=== PATIENT | female | born 1970 | race African-American/Black ===

== ENCOUNTER 2016-07-23 04:57 | Inpatient (IN) | payer OTHER ==
[2016-07-19 10:21] VITALS: BMI 40.2
[~2016-07-23 04:57] MED LIST: ceFAZolin SODIUM 1 GM VIAL IVPB ONE
[2016-07-23] MEDS ORDERED: ROPIVACAINE HCL 0.5% 30ML VIAL ONE (07:13)
[2016-07-23] MEDS ORDERED: MIDAZOLAM HCL 2 MG/2 ML SINGLE DOSE VIAL ONE ×2 (07:14)
--- NOTE | 2016-07-23 08:11 | HP ---
History & Physical Update - History History: No Change - Physical Physical: No Change - Assessment Assessment: No Change - Plan Plan: No Change
[2016-07-23] MEDS ORDERED: ceFAZolin SODIUM 1 GM VIAL IVPB ONE (08:41)
[2016-07-23] MEDS ORDERED: ONDANSETRON 4 MG/2 ML VIAL IVPUSH PRN (10:11)
[2016-07-23] MEDS ORDERED: oxyCODONE HCL 5 MG TABLET PO PRN ×2 (10:11)
[2016-07-23] MEDS ORDERED: LACTATED RINGERS SOLUTION 1,000 ML IV SCH (10:15)
--- NOTE | 2016-07-23 10:18 | OP ---
<Capri Kern - Last Filed: 07/23/16 10:13> Operative Note - Note: Operative Date: 07/23/16 Pre-Operative Diagnosis: leimyoma Operation: abdominal myomectomy Post-Operative Diagnosis: Same as Pre-op Surgeon: Margot Singh [employer]iconductor Development Technician: Capri Kern Anesthesiologist/SECOND OPERATOR: Byron López Anesthesia: General Specimens Removed: uterine fibroid Estimated Blood Loss (mls): 30 Drains & Tubes with Location: pisano Drains, Volume Out (mls): 100 Fluid Volume Replaced (mls): 1,200 Operative Report Dictated: Yes <Margot Singh - Last Filed: 07/23/16 13:37> Operative Note - Note: Operative Date: 07/23/16 Pre-Operative Diagnosis: Leiomyomeatous uterus. intramural myoma. irregular bleeding Operation: Abdominal myomectomy. Left ovarian cystectomy Findings: Left corpus luteal cyst 4 myomas removed largest 4cm x 3 cm Surgeon: Margot Singh [employer] Development Technician: Capri Kern Anesthesia: General Operative Report Dictated: Yes
--- NOTE | 2016-07-23 11:39 | SURG ---
Surgery Trapper Bird Note Trapper Bird: Capri Kern PA-C Date of Service: 07/23/16 Diagnosis: uterine leiomyoma Procedure: abdominal myometctomy I was present for the entirety of the operative procedure. For further detail, please refer to operative report. Visit type - Case Type Case Type: Scheduled Admission - Emergency Emergency Visit: No - New patient This patient is new to me today: Yes Date on this admission: 07/23/16 - Critical Care Critical Care patient: No
[2016-07-23] MEDS ORDERED: ONDANSETRON 4 MG/2 ML VIAL IVPB PRN (11:42)
[2016-07-23] MEDS ORDERED: LORATADINE 10 MG TABLET PO PRN (11:51)
[2016-07-23] MEDS ORDERED: HYDROmorphone *PCA* 10MG/50ML DISP.SYRIN PCA ONE (12:06)
[2016-07-23] MEDS ORDERED: HYDROmorphone *PCA* 10MG/50ML DISP.SYRIN PCA SCH (12:15)
[2016-07-23] MEDS: LACTATED RINGERS SOLUTION 1,000 ML IV SCH (15:00)
[2016-07-23] MEDS ORDERED: CEFAZOLIN (PRE-DOCKED) 50 ML IVPB ONE ×2 (16:43→21:22)
[2016-07-23] MEDS: CEFAZOLIN 1 GM/D5W 50 ML IVPB SCH (16:50)
[2016-07-23] MEDS: ACETAMINOPHEN 325 MG TABLET (FP) PO SCH (18:59)
[2016-07-24] MEDS: CEFAZOLIN 1 GM/D5W 50 ML IVPB SCH (00:58)
--- NOTE | 2016-07-24 07:14 | PN ---
Progress Note (short form) - Note Progress Note: 46 yo status post abdominal myomectomy, seen and evaluated. She c/o incision pain. PE : Chest : CTA, no rales ABD : Soft, dressing dry and intact + incision pain EXT : No calf tenderness ASS / Plan : Status post Myomectomy Ambulation Analgesia PRN pain D/C Carbajal catheter Regular diet Continue post op care
[2016-07-24 08:25] LABS: MCH 25.8 pg (25.7-33.7); MCHC 33.2 g/dl (32.0-36.0); MEAN CELL VOLUME 77.8 fl (80-96); MEAN PLT VOLUME 8.5 fl (7.5-11.1); PLATELET COUNT 253 K/MM3 (134-434); RDW 16.3 % (11.6-15.6); WHITE BLOOD COUNT 13.1 K/mm3 (4.0-10.0)
[2016-07-24 08:56] LABS: CALCIUM 8.1 mg/dL (8.5-10.1); COCKROFT - GAULT 186.49; CREATININE 0.6 mg/dL (0.55-1.02)
[2016-07-24] MEDS ORDERED: CYANOCOBALAMIN 1,000 MCG TABLET (FP) PO SCH (10:00)
[2016-07-24] MEDS ORDERED: oxyCODONE HCL 5 MG TABLET PO PRN ×2 (10:00)
[2016-07-24] MEDS ORDERED: DHA PO SCH (10:00)
[2016-07-24] MEDS ORDERED: DSS PO SCH (10:00)
[2016-07-24] MEDS ORDERED: PRENATAL PO SCH (10:00)
[2016-07-24] MEDS ORDERED: [UNRECOGNIZED DRUG - OTHER] PO SCH (10:00)
[2016-07-24] MEDS ORDERED: IRON PO SCH (10:00)
[2016-07-24] MEDS ORDERED: ENOXAPARIN NA (PORCINE) 40 MG/0.4 ML DISP.SYRIN SQ SCH (10:00)
[2016-07-24] MEDS: IBUPROFEN 600 MG TABLET (FP) PO PRN ×2 (12:57→21:05)
[2016-07-24] MEDS: ACETAMINOPHEN 325 MG TABLET (FP) PO PRN ×2 (12:58→21:06)
[2016-07-24] MEDS ORDERED: PCA PUMP KEY 1 EACH EACH ONE (13:09)
--- NOTE | 2016-07-24 13:55 | PATH ---
Surgical Pathology Report Patient Name: MONICA FLOREZ [facility]. Rec. #: [id number] /Age/Gender: 1970 (Age: 46) / F Account: [id number] Location: [facility] OBS/BARBER Taken: 07/23/2016 Received: 07/23/2016 Reported: 07/24/2016 Physicians: Margot Singh M.D. Specimen(s) Received A: FIBROIDS OF UTERUS B: CYST WALL (LEFT) Clinical History Leiomyoma of uterus Final Diagnosis A. FIBROIDS OF UTERUS, ABDOMINAL MYOMECTOMY: LEIOMYOMATA (LARGEST 5.2 CM). B. OVARY, LEFT, CYSTECTOMY: HEMORRHAGIC CORPUS LUTEUM CYST. Electronically Signed Hany Gallardo M.D. Gross Description A. Received in formalin labeled "fibroids of the uterus" is a 47 g aggregate of 4 keating, irregular nodules, consistent with fibroids. The fibroids range from 0.8-5.2 cm in greatest dimension. Sectioning reveals keating, firm to rubbery parenchyma with a whorled architecture. No areas of hemorrhage or necrosis are identified. Underwater Hunter Trapper sections are submitted in 5 cassettes as follows: 1-entirely submitted 2 smallest fibroids; 2-second largest fibroid; 3-5-largest fibroid. B. Received in formalin labeled "cyst wall left" is a 1.6 x 1.2 x 0.2 cm aggregate of keating-brown soft tissue fragments. The specimen is entirely submitted in one cassette. /07/23/201607/23/2016
[2016-07-24] MEDS ORDERED: BISACODYL 10 MG SUPP.RECT RC PRN (16:40)
[2016-07-24] MEDS: LACTATED RINGERS SOLUTION 1,000 ML IV SCH (18:36)
[2016-07-24] MEDS ORDERED: DOCUSATE SODIUM 100 MG CAPSULE (FP) PO SCH (22:00)
[2016-07-24 22:18] VITALS: BP 153/79; PULSE 67; TEMP 98
[2016-07-25] MEDS: IBUPROFEN 600 MG TABLET (FP) PO PRN (01:37)
[2016-07-25] MEDS: ACETAMINOPHEN 325 MG TABLET (FP) PO PRN (01:37)
--- NOTE | 2016-08-04 12:30 | OP ---
DATE OF OPERATION: 07/23/2016 PREOPERATIVE DIAGNOSIS: Leiomyomatous uterus. OPERATION: Abdominal myomectomy and left ovarian cystectomy. POSTOPERATIVE DIAGNOSIS: Leiomyomatous uterus. SURGEON: Vanessa Singh MD TAILINGS DAM PUMPER: OMKAR Lima ANESTHESIA: General. PROCEDURE: The patient was taken to the operating room, placed in supine position, and prepped and draped in the usual sterile fashion. A time-out was performed in accordance with hospital regulations. A Pfannenstiel skin incision was made. Cautery was then used to go through the layers of abdominal wall at the level of the fascia. The fascia was cut in the midline and cautery was then used to open the fascia in smiling fashion. Roger was then used to bluntly and sharply dissect the rectus muscle off the fascia. The muscle was split in the midline and peritoneal cavity was then entered. A uterus was exteriorized. Clear space in the broad ligament was identified and tourniquet placed across the uterus. Pitocin was then infiltrated into the uterus and myoma was palpated. An anterior incision was then made and a 4 x 3-cm myoma was then removed. The incision was then closed in layers using 0 Vicryl suture in continuous locking fashion and then embrocating the serosal layer. Numerous other myomas were then removed. Approximately 4 myomas were submitted to Pathology. All myomas were then closed in layers. After hemostasis had been achieved using figure-of-8 sutures, attention was then drawn to the left ovary where a left ovarian corpus luteum cyst was identified. Cautery was then used to open the cyst and the cyst wall was then exteriorized and submitted to Pathology. Cautery of the ovary was then done. Hemostasis was achieved. The right ovary was noted to be normal. The tubes were noted to be normal. The uterus was then exteriorized and intercede was placed over the uterus. The wound was washed and dressed. The abdominal cavity was cleaned with clean laparotomy pads. The peritoneum was then closed using 0 Vicryl suture. The fascia was then closed using 0 Vicryl suture in 2 parts. The skin was then closed using 3-0 Vicryl subcuticular fashion. The wound was washed and dressed. The patient tolerated the procedure well. She was taken to the recovery room in stable condition. CANDE SINGH M.D. ARMIN/[id number]
== END 2016-07-25 05:30 | disposition home or self-care (01) | DRG 519 ==
LOC: JSAMEDAYSX 04:57 → J3W 15:15
PROVIDERS: ADMIT Obstetrics & Gynecology; ATTEND Obstetrics & Gynecology
PROC: 0UB10ZZ Excision of Left Ovary, Open Approach (ICD-10-PCS; 2016-07-23)
PROC: 0UB90ZZ Excision of Uterus, Open Approach (ICD-10-PCS; principal; 2016-07-23 08:00)
DX: D25.1 Intramural leiomyoma of uterus (principal); E66.01 Morbid (severe) obesity due to excess calories; Z68.41 Body mass index [BMI] 40.0-44.9, adult; N83.12 Corpus luteum cyst of left ovary
CPT/HCPCS: 36415; 80048; 84703; 85027; 88305-TC; 94010; 94760